=== PATIENT | female | born 1950 | race Caucasian/White ===

== ENCOUNTER 2018-04-26 14:11 | Emergency (ER) | payer OTHER ==
[~2018-04-26] VITALS: Ht 154.9 cm; Wt 90.7 kg
== END 2018-04-26 18:06 | disposition home or self-care (01) ==
LOC: ER 14:11
DX: J11.1 Influenza due to unidentified influenza virus with other respiratory manifestations (principal)

== ENCOUNTER 2018-10-27 15:36 | Emergency (ER) | payer OTHER ==
[~2018-10-27] VITALS: Ht 157.5 cm; Wt 88.9 kg
== END 2018-10-27 18:40 | disposition home or self-care (01) ==
LOC: ER 15:36
DX: J16.8 Pneumonia due to other specified infectious organisms (principal); R05 Cough; R09.81 Nasal congestion

== ENCOUNTER 2018-11-02 12:02 | Outpatient (CLI) | payer OTHER | END 2018-11-02 12:04 | disposition home or self-care (01) | LOC: RAD 12:02 | DX: J20.8 Acute bronchitis due to other specified organisms (principal) ==

== ENCOUNTER → 2020-08-24 13:49 | Outpatient (CLI) | payer OTHER | END | disposition home or self-care (01) | LOC: NUCLEAR 13:49 | PROVIDERS: ATTEND Internal Medicine | DX: M81.0 Age-related osteoporosis without current pathological fracture (principal) ==

== ENCOUNTER 2020-09-11 10:30 | Outpatient (CLI) | payer OTHER | END 2020-09-11 10:34 | disposition home or self-care (01) | LOC: RAD 10:30 | PROVIDERS: ATTEND Internal Medicine | DX: I10 Essential (primary) hypertension (principal); Z13.29 Encounter for screening for other suspected endocrine disorder ==

== ENCOUNTER 2021-03-17 09:10 | Outpatient (CLI) | payer OTHER | END 2021-03-17 09:18 | disposition home or self-care (01) | LOC: NUCLEAR 09:10 | PROVIDERS: ATTEND Internal Medicine Cardiovascular Disease | DX: I11.0 Hypertensive heart disease with heart failure (principal) ==

== ENCOUNTER 2021-03-26 07:48 | Outpatient (CLI) | payer OTHER | END 2021-03-26 07:49 | disposition home or self-care (01) | LOC: NUCLEAR 07:48 | PROVIDERS: ATTEND Internal Medicine Cardiovascular Disease | DX: I10 Essential (primary) hypertension (principal) ==

== ENCOUNTER 2022-07-10 18:10 | Emergency (ER) | payer OTHER ==
[~2022-07-10] VITALS: Ht 157.5 cm; Wt 81.6 kg
[2022-07-10] MEDS ORDERED: ATORVASTATIN CA20 MG PO (18:32)
[2022-07-10] MEDS ORDERED: METOPROLOL SUCC25 MG PO (18:33)
== END 2022-07-10 19:48 | disposition home or self-care (01) ==
LOC: ER 18:10
DX: J06.9 Acute upper respiratory infection, unspecified (principal); Z88.6 Allergy status to analgesic agent

== ENCOUNTER 2022-09-16 10:38 | Outpatient (CLI) | payer OTHER ==
[~2022-09-16 10:38] MED LIST: ATORVASTATIN CA20 MG PO; METOPROLOL SUCC25 MG PO
== END 2022-09-16 10:47 | disposition home or self-care (01) ==
LOC: NUCLEAR 10:38
PROVIDERS: ATTEND Internal Medicine
DX: M81.0 Age-related osteoporosis without current pathological fracture (principal)

== ENCOUNTER 2023-04-19 09:32 | Outpatient (CLI) | payer OTHER | END 2023-04-19 09:37 | disposition home or self-care (01) | LOC: RAD 09:32 | PROVIDERS: ATTEND Physical Medicine & Rehabilitation | DX: M17.12 Unilateral primary osteoarthritis, left knee (principal) ==

== ENCOUNTER 2023-04-27 09:55 | Outpatient (CLI) | payer OTHER | END 2023-04-27 09:59 | disposition home or self-care (01) | LOC: RAD 09:55 | PROVIDERS: ATTEND Physical Medicine & Rehabilitation | DX: M19.041 Primary osteoarthritis, right hand (principal); M54.2 Cervicalgia; M17.11 Unilateral primary osteoarthritis, right knee; Z88.6 Allergy status to analgesic agent ==